=== PATIENT | male | born 1985 | race Caucasian/White ===

== ENCOUNTER 2018-04-05 10:51 | Emergency (ER) | payer SELFPAY ==
[~2018-04-05] VITALS: Ht 175.3 cm; Wt 70.0 kg
[~2018-04-05 10:51] MED LIST: MECL25 PO; Z.0.NO CURRENT MEDS
[2018-04-05 11:05] VITALS: BP 130/86; PULSE 115; RESP 12; TEMP 99.7; O2SAT 99
[2018-04-05 11:11] VITALS: RESP 12; O2SAT 99
[2018-04-05] MEDS ORDERED: SODIUM CHLORIDE 0.9% FLUSH 10 ML FLUSH IVF PRN (11:15)
[2018-04-05] MEDS ORDERED: SODIUM CHLOR 0.9% 1000 ML INJ 1,000 ML IV ONE ×2 (11:15)
--- NOTE | 2018-04-05 11:17 | PD ---
HPI Chief Complaint: OD/ Ingestion Time Seen by Provider: 11:08 Travel History International Travel<30 days: No Contact w/Intl Traveler<30days: No Traveled to known affect area: No History of Present Illness HPI Patient is a 32-year-old male who presents the emergency room by EMS for evaluation of overdose. As per EMS, patient was found on the floor unresponsive in a hotel room. Patient reports that he is addicted to opioids, reports that his friend encouraged him to crush up Lortabs and injected today. Patient reports that he did this today and does not remember what happened. When EMS arrived on scene, patient had agonal respirations, reports that he was unresponsive and they did required BMV. Patient was given a total of 0.8 mg of Narcan IV and did respond to this. Patient is currently alert and oriented 3, patient denies suicidal or homicidal ideations. Patient reports that this was an accidental overdose. Patient does have repetitive speech at this time, denies any trauma to the head though is unsure why he was found on the ground. [facility] Past Medical History Diminished Hearing: No Inguinal Hernia: Yes Past Surgical History Surgical History: No Previous Surgery Social History Alcohol Use: Yes (3 X WEEKLY) Tobacco Use: Yes (1-2 CIG DAILY) Substance Use: Yes Allergies-Medications (Allergen,Severity, Reaction): Coded Allergies: penicillin G (Unverified Allergy, Severe, unknown, 04/05/18) Reported Meds & Prescriptions Reported Meds & Active Scripts Active No Active Prescriptions or Reported Medications Review of Systems General / Constitutional: No: Fever Eyes: No: Visual changes HENT: No: Headaches Cardiovascular: No: Chest Pain or Discomfort Respiratory: No: Shortness of Breath Gastrointestinal: No: Abdominal Pain Genitourinary: No: Dysuria Musculoskeletal: No: Pain Skin: No Rash Neurologic: No: Weakness Psychiatric: Positive: Substance Abuse, No: Depression, Suicidal Ideations, Homicidal Ideation Endocrine: No: Polydipsia Hematologic/Lymphatic: No: Easy Bruising Physical Exam Narrative GENERAL: mild distress SKIN: Focused skin assessment warm/dry. HEAD: Atraumatic. Normocephalic. EYES: Pupils equal and round. No scleral icterus. No injection or drainage. ENT: No nasal bleeding or discharge. Mucous membranes pink and moist. NECK: Trachea midline. No JVD. CARDIOVASCULAR: Tachycardic. No murmur appreciated. RESPIRATORY: No accessory muscle use. Clear to auscultation. Breath sounds equal bilaterally. GASTROINTESTINAL: Abdomen soft, non-tender, nondistended. Hepatic and splenic margins not palpable. MUSCULOSKELETAL: No obvious deformities. No clubbing. No cyanosis. No edema. NEUROLOGICAL: Awake and alert. No obvious cranial nerve deficits. Motor grossly within normal limits. Normal speech. PSYCHIATRIC: Appropriate mood and affect; insight and judgment normal. Data Data Last Documented VS Vital Signs Date Time Temp Pulse Resp B/P (MAP) Pulse Ox O2 Delivery O2 Flow Rate FiO2 04/05/18 13:14 111 15 113/67 (82) 94 Room Air 04/05/18 11:05 99.7 Orders Orders Comprehensive Metabolic Panel (04/05/18 11:09) Oximetry (04/05/18 11:09) Iv Access Insert/Monitor (04/05/18 11:09) Ecg Monitoring (04/05/18 11:09) Sodium Chloride 0.9% Flush (Ns Flush) (04/05/18 11:15) Drug Screen, Random Urine (04/05/18 11:09) Alcohol (Ethanol) (04/05/18 11:09) Salicylates (Aspirin) (04/05/18 11:09) Tylenol (Acetaminophen) (04/05/18 11:09) Sodium Chlor 0.9% 1000 Ml Inj (Ns 1000 M (04/05/18 11:15) Ct Brain W/O Iv Contrast(Rout) (04/05/18 ) Sodium Chlor 0.9% 1000 Ml Inj (Ns 1000 M (04/05/18 11:15) Chest, Single Ap (04/05/18 11:17) Potassium Chloride (Kcl) (04/05/18 12:30) Labs Laboratory Tests Test 04/05/18 11:30 04/05/18 11:34 Blood Urea Nitrogen 11 MG/DL Creatinine 1.00 MG/DL Random Glucose 209 MG/DL Total Protein 6.5 GM/DL Albumin 3.4 GM/DL Calcium Level 7.6 MG/DL Alkaline Phosphatase 74 U/L Aspartate Amino Transf (AST/SGOT) 90 U/L Alanine Aminotransferase (ALT/SGPT) 55 U/L Total Bilirubin 0.6 MG/DL Sodium Level 138 MEQ/L Potassium Level 3.2 MEQ/L Chloride Level 104 MEQ/L Carbon Dioxide Level 24.8 MEQ/L Anion Gap 9 MEQ/L Estimat Glomerular Filtration Rate 86 ML/MIN Salicylates Level LESS THAN 1.7 MG/DL Acetaminophen Level LESS THAN 2.0 MCG/ML Ethyl Alcohol Level LESS THAN 3 MG/DL Urine Opiates Screen POS Urine Barbiturates Screen NEG Urine Amphetamines Screen NEG Urine Benzodiazepines Screen NEG Urine Cocaine Screen POS Urine Cannabinoids Screen POS MDM Medical Decision Making Medical Screen Exam Complete: Yes Emergency Medical Condition: Yes Medical Record Reviewed: Yes Interpretation(s) Vital Signs Date Time Temp Pulse Resp B/P (MAP) Pulse Ox O2 Delivery O2 Flow Rate FiO2 04/05/18 11:11 12 99 04/05/18 11:05 99.7 115 12 130/86 (101) 99 Differential Diagnosis accidental opioid overdose, electrolyte abnormality, pneumothorax, closed head injury, intracranial hemorrhage Narrative Course 32 year old male who presents to the ER for evaluation of drug overdose. He was given a total of 0.8mg of narcan by [facility] prior to arrival to the ER. Patient alert and oriented x 3, he does appear to have repetitive questioning on exam. CT of the head was ordered. During the course of the patients emergency department visit, the patients history, examination, and differential diagnosis were reviewed with the patient. The patient was placed on a corner former with oximetry and frequent blood pressure monitoring. The patient had an IV access obtained and blood work sent for analysis. The patient was initially provided IV fluids. The patients laboratory studies were reviewed and remarkable for CBC & BMP Diagram 04/05/18 11:30 Total Protein 6.5, Albumin 3.4, Calcium Level 7.6 L, Alkaline Phosphatase 74, Aspartate Amino Transf (AST/SGOT) 90 H, Alanine Aminotransferase (ALT/SGPT) 55, Total Bilirubin 0.6 Radiology studies were reviewed and remarkable for Last Impressions Chest X-Ray 04/05/18 1117 Signed Impressions: CONCLUSION: No acute cardiopulmonary disease Head CT 04/05/18 0000 Signed Impressions: CONCLUSION: 1. No acute intracranial abnormality. Patient has been observed in the emergency room for 4 hours and 20 minutes, patient denies suicidal or homicidal ideations. Patient endorses that this was an accidental drug overdose. He does not want to see psychiatric screener. Patient will be discharged home with his parents and will return to ER as needed. Diagnosis Primary Impression: Accidental drug overdose Qualified Codes: T50.901A - Poisoning by unspecified drugs, medicaments and biological substances, accidental (unintentional), initial encounter Additional Impression: Hypokalemia Patient Instructions: General Instructions Additional Instructions: Please stop using drugs!!! Please follow up with your primary care doctor in 2-3 days Return to the ER if symptoms worsen or progress Return to the ER as needed Scripts No Active Prescriptions or Reported Meds Disposition: 01 DISCHARGE HOME Condition: Stable Mamie Smith DO April 05, 2018 11:17
[2018-04-05 11:18] VITALS: BP 142/80; PULSE 119; RESP 18; O2SAT 95
--- NOTE | 2018-04-05 11:54 | RADRPT ---
EXAM DATE: 04/05/2018 11:45 AM EDT AGE/SEX: 32 years / Male INDICATIONS: Shortness of breath. Possible OD. CLINICAL DATA: This is the patient's initial encounter. Patient reports that signs and symptoms have been present for 1 day and indicates a pain score of 0/10. MEDICAL/SURGICAL HISTORY: None. None. COMPARISON: No prior [facility] exams available for comparison. FINDINGS: A single AP view of the chest demonstrates the lungs to be symmetrically aerated without evidence of mass, infiltrate or effusion. The cardiomediastinal contours are unremarkable. Osseous structures a re intact. CONCLUSION: No acute cardiopulmonary disease Electronically signed by: Tommy Frazier MD 04/05/2018 11:53 AM EDT
[2018-04-05 12:14] LABS: ALBUMIN 3.4 GM/DL (3.4-5.0); ALKALINE PHOSPHATASE 74 U/L (45-117); ALT (GPT) 55 U/L (12-78); AST (GOT) 90 U/L (15-37); BICARBONATE 24.8 MEQ/L (21.0-32.0); BLOOD UREA NITROGEN 11 MG/DL (7-18); CALCIUM 7.6 MG/DL (8.5-10.1); CHLORIDE 104 MEQ/L (98-107); GLOMERULAR FILTRATION RATE 86 ML/MIN (>89); GLUCOSE,RANDOM 209 MG/DL (74-106); SODIUM (NA) 138 MEQ/L (136-145); TOTAL BILIRUBIN ADULT 0.6 MG/DL (0.2-1.0); TOTAL PROTEIN 6.5 GM/DL (6.4-8.2)
[2018-04-05 12:15] LABS: ACETAMINOPHEN LESS THAN 2.0 MCG/ML (10.0-30.0)
[2018-04-05] MEDS ORDERED: POTASSIUM CHLORIDE 10 MEQ CONTROLLED RELEASE TAB PO ONE (12:30)
--- NOTE | 2018-04-05 13:09 | RADRPT ---
EXAM DATE: 04/05/2018 1:03 PM EDT AGE/SEX: 32 years / Male INDICATIONS: Altered mental status, possible overdose. CLINICAL DATA: This is the patient's initial encounter. Patient reports that signs and symptoms have been present for 1 day and indicates a pain score of 0/10. MEDICAL/SURGICAL HISTORY: None. None. RADIATION DOSE: 45.32 CTDI (mGy) COMPARISON: No prior [facility] exams available for comparison. TECHNIQUE: CT of the head without contrast. Using automated exposure control and adjustment of the mA and/or kV according to patient size, radiation dose was kept as low as reasonably achievable to ob tain optimal diagnostic quality images. FINDINGS: Cerebrum: The ventricles are normal for age. No evidence of midline shift, mass lesion, hemorrhage or acute infarction. No extraaxial fluid collections are seen. Posterior Fossa: The cerebellum and brainstem are intact. The 4th ventricle is midline. The cerebe llopontine angle is unremarkable. Extracranial: The visualized portion of the orbits is intact. Skull: The calvaria is intact. No evidence of skull fracture. CONCLUSION: 1. No acute intracranial abnormality. Electronically signed by: Tommy Frazier MD 04/05/2018 1:07 PM EDT
[2018-04-05 13:14] VITALS: BP 113/67; PULSE 111; RESP 15; O2SAT 94
== END 2018-04-05 15:32 | disposition home or self-care (01) ==
LOC: NEPD 10:51
DX: T40.2X1A Poisoning by other opioids, accidental (unintentional), initial encounter (principal); E87.6 Hypokalemia; F17.210 Nicotine dependence, cigarettes, uncomplicated
CPT/HCPCS: 70450; 71045; 80053; 80307; 96360; 99285; J7030